=== PATIENT | female | born 1980 | race Caucasian/White ===

== ENCOUNTER 2023-09-15 15:55 | Inpatient (IN) | payer BC, OTHER ==
[~2023-09-15] VITALS: Ht 175.3 cm; Wt 78.6 kg
[2023-09-15 17:07] VITALS: PULSE 88; RESP 18; O2SAT 97
[2023-09-15 17:51] LABS: Basophils # (auto) 0 10 ^3/uL (0-0.2); Basophils % (auto) 0.2 % (0.0-2.0); Eosinophils # (auto) 0.1 10 ^3/uL (0-0.8); Eosinophils % (auto) 0.8 % (0.0-7.0); Hematocrit 37.2 % (36.0-46.0); Hemoglobin 12.7 g/dL (12.2-16.2); Lymphocytes # (auto) 1.3 10 ^3/uL (0.4-5.4); Lymphocytes % (auto) 14.2 % (10.0-50.0); Mean Corpuscular Hemoglobin 33.8 pg (28.0-32.0); Mean Corpuscular Hgb Conc. 34.2 g/dL (32.0-36.0); Mean Corpuscular Volume 98.7 fL (80.0-100.0); Monocytes # (auto) 0.5 10 ^3/uL (0-1.3); Monocytes % (auto) 5.4 % (0.0-12.0); Neutrophils # (auto) 7.3 10 ^3/uL (1.6-8.6); Neutrophils % (auto) 79.4 % (37.0-80.0); Nucleated Red Blood Cells % 0.1 %; Red Blood Cells 3.77 10^6/uL (4.0-5.20); Red Cell Distribution Width 13.4 % (11.8-14.3); White Blood Cell 9.2 10^3/uL (4.4-10.8)
[2023-09-15] MEDS: SODIUM CHLORIDE 0.9% 1,000 ML IV ONE (17:53)
[2023-09-15] MEDS: ASPirin 325 MG TAB PO ONE (17:53)
[2023-09-15] MEDS: IOHEXOL 350 MG/ML 100ML IJ ONE (17:54)
[2023-09-15 18:04] LABS: INR 1.08 (0.9-1.15); Partial Thromboplastin Time 24.8 SEC (24.5-34.5); Prothrombin Time 11.4 sec (9.3-11.8)
[2023-09-15 18:11] LABS: Alanine Aminotransferase 17 U/L (7-40); Albumin 4.1 g/dL (3.2-4.8); Alkaline Phosphatase 49 U/L (46-116); Anion Gap 12 (5-15); Aspartate Aminotransferase 14 U/L (13-40); BUN/Creatinine Ratio 11.4 (10.0-20.0); Bilirubin, Total 0.6 mg/dL (0.2-1.0); Blood Urea Nitrogen 10 mg/dL (9-23); Calcium 9.2 mg/dL (8.7-10.4); Carbon Dioxide 25 mmol/L (20-30); Chloride 104 mmol/L (98-107); Glucose 88 mg/dL (74-106); Magnesium 1.4 mg/dL (1.6-2.6); Potassium 3.3 mmol/L (3.5-5.1); Sodium 141 mmol/L (136-145)
[2023-09-15 19:03] LABS: Urine Bacteria None Seen /hpf (None Seen)
[2023-09-15 19:28] LABS: Urine Blood Negative /uL (Negative); Urine Clarity Clear (Clear); Urine Color Yellow (Yellow); Urine Mucus FEW (None Seen); Urine Protein, UAD TRACE (Negative); Urine Specific Gravity 1.034 (1.001-1.035); Urine Urobilinogen Normal (Negative); Urine WBC 5 /hpf (0 - 5); Urine pH 5.5 (5.0-9.0)
[2023-09-15] MEDS ORDERED: NITROGLYCERIN 0.4 MG SL TAB SL PRN (20:00)
[2023-09-15] MEDS ORDERED: hydrALAZINE HCL 20 MG/ML VL IV PRN (20:00)
[2023-09-15] MEDS ORDERED: HYDROcodone-ACET 5/325MG TAB PO PRN (20:00)
[2023-09-15] MEDS ORDERED: ONDANSETRON HCL 4 MG/2 ML VIAL IV PRN (20:00)
[2023-09-15] MEDS ORDERED: DOCUSATE SOD 100 MG CAP PO PRN (20:00)
[2023-09-15] MEDS ORDERED: MORPHINE SULFATE INJ 2 MG/ml SYRG IV PRN (20:00)
[2023-09-15] MEDS: SODIUM CHLOR 0.9% PF (SALINE LOCK) 10ML VIAL/SYR IV SCH (22:00)
[2023-09-15 22:08] VITALS: PULSE 95; RESP 16; O2SAT 95
[2023-09-15] MEDS: POTASSIUM CHL 20 Meq TABLET PO ONE ×2 (22:13→23:53)
[2023-09-15] MEDS: MAGNESIUM OXIDE 400 MG TAB PO ONE (22:14)
[2023-09-15] MEDS: MAGNESIUM SULFATE 1GM/100ML 100 ML IV ONE (23:52)
[2023-09-15 23:53] VITALS: RESP 18
[2023-09-16] VITALS (8 sets, daily range): BP systolic 108–136; BP diastolic 63–86; PULSE 61–82; RESP 17–22; TEMP 97.6–98.5; O2SAT 96–98
[2023-09-16] MEDS ORDERED: LORA-1105 PO (00:52)
[2023-09-16] MEDS ORDERED: NORT25CA PO (00:52)
[2023-09-16] MEDS ORDERED: BUSP15TA60 PO (00:55)
[2023-09-16] MEDS ORDERED: OME20GT GT (00:55)
[2023-09-16] MEDS ORDERED: BUPR-239 PO (00:55)
[2023-09-16] MEDS: LEVOTHYROXINE SODIUM 25 MCG TAB PO SCH (05:53)
[2023-09-16 07:02] LABS: Basophils # (auto) 0 10 ^3/uL (0-0.2); Eosinophils # (auto) 0.1 10 ^3/uL (0-0.8); Eosinophils % (auto) 1.3 % (0.0-7.0); Hematocrit 34.6 % (36.0-46.0); Hemoglobin 12.1 g/dL (12.2-16.2); Lymphocytes # (auto) 1.3 10 ^3/uL (0.4-5.4); Lymphocytes % (auto) 26.5 % (10.0-50.0); Mean Corpuscular Hemoglobin 34.5 pg (28.0-32.0); Mean Corpuscular Hgb Conc. 34.8 g/dL (32.0-36.0); Mean Corpuscular Volume 99.3 fL (80.0-100.0); Monocytes # (auto) 0.3 10 ^3/uL (0-1.3); Monocytes % (auto) 6.8 % (0.0-12.0); Neutrophils # (auto) 3.1 10 ^3/uL (1.6-8.6); Neutrophils % (auto) 64.4 % (37.0-80.0); Red Blood Cells 3.49 10^6/uL (4.0-5.20); Red Cell Distribution Width 13.5 % (11.8-14.3); White Blood Cell 4.9 10^3/uL (4.4-10.8)
[2023-09-16 07:24] LABS: Alanine Aminotransferase 13 U/L (7-40); Albumin 3.7 g/dL (3.2-4.8); Alkaline Phosphatase 46 U/L (46-116); Anion Gap 7 (5-15); Aspartate Aminotransferase 10 U/L (13-40); Blood Urea Nitrogen 6 mg/dL (9-23); Calcium 8.7 mg/dL (8.7-10.4); Carbon Dioxide 23 mmol/L (20-30); Chloride 110 mmol/L (98-107); Glucose 76 mg/dL (74-106); Sodium 140 mmol/L (136-145)
[2023-09-16 07:25] LABS: Bilirubin, Total 1.2 mg/dL (0.2-1.0); Total Protein 5.6 g/dL (5.7-8.2)
[2023-09-16 09:01] LABS: Amphetamine Screen, Urine Neg (NEGATIVE); Barbiturate Scree,Urine Neg (NEGATIVE); Benzodiazephine Screen, Urine Neg (NEGATIVE)
[2023-09-16 09:02] LABS: Cannabinoid Screen, Urine Pos (NEGATIVE); Cocaine Screen, Urine Neg (NEGATIVE); Opiate Scree,Urine Neg (NEGATIVE); Phencyclidine Screen, Urine Neg (NEGATIVE)
[2023-09-16] MEDS: ASPirin 81 mg TAB PO SCH (09:09)
[2023-09-16] MEDS: CYANOCOBALAMIN 500 MCG TAB PO ONE (12:55)
[2023-09-16] MEDS: PANTOPRAZOLE 40 MG TAB PO ONE (12:56)
[2023-09-16] MEDS: ERGOCALCIFEROL 50,000 UNIT(1.25MG) CAP PO SCH (12:56)
[2023-09-16] MEDS: ACETAMINOPHEN 325 MG TAB PO PRN (23:09)
[2023-09-17 01:00] VITALS: BP 112/69; PULSE 69; RESP 20; TEMP 98.4; O2SAT 96
[2023-09-17 05:00] VITALS: BP 108/74; PULSE 72; RESP 22; TEMP 97.8; O2SAT 98
[2023-09-17] MEDS: PANTOPRAZOLE 40 MG TAB PO SCH (05:25)
[2023-09-17 07:26] LABS: Anion Gap 8 (5-15); Carbon Dioxide 24 mmol/L (20-30); Chloride 109 mmol/L (98-107); Potassium 3.6 mmol/L (3.5-5.1); Sodium 141 mmol/L (136-145)
[2023-09-17 07:27] LABS: Calcium 9.7 mg/dL (8.7-10.4)
[2023-09-17 07:32] LABS: BUN/Creatinine Ratio 7.1 (10.0-20.0); Blood Urea Nitrogen < 5 mg/dL (9-23); Glucose 97 mg/dL (74-106)
[2023-09-17 09:00] VITALS: BP 103/63; PULSE 70; RESP 15; TEMP 98.2; O2SAT 98
[2023-09-17] MEDS: CYANOCOBALAMIN 500 MCG TAB PO SCH (09:51)
[2023-09-17] MEDS ORDERED: BUPR-60 PO (11:25)
[2023-09-17] MEDS ORDERED: BUSP30TA PO (11:25)
[2023-09-17] MEDS ORDERED: MET25T PO (11:26)
[2023-09-17] MEDS ORDERED: LEVO25TA6 PO (11:26)
[2023-09-17 13:00] VITALS: BP 115/73; PULSE 73; RESP 17; TEMP 98.3; O2SAT 98
[2023-09-17 13:28] VITALS: BP 115/73; PULSE 73; RESP 17; TEMP 98.3; O2SAT 98
[2023-09-17] MEDS ORDERED: CYAN500T3 PO (14:03)
[2023-09-17] MEDS ORDERED: ACET-1882 PO (14:03)
[2023-09-17] MEDS ORDERED: ERGO1CAP23 PO (14:03)
[2023-09-17] MEDS ORDERED: LEV25T PO (14:03)
[2023-09-17] MEDS ORDERED: ASPI-325 PO (14:03)
[2023-09-17] MEDS ORDERED: PANT40T PO (14:03)
== END 2023-09-17 15:16 | disposition home or self-care (01) | DRG 640 ==
LOC: ER 15:55 → TELE 20:14 → TELE-WESTW 22:59 → WEST WING 09-17 07:52
PROVIDERS: ADMIT Internal Medicine; ATTEND Internal Medicine
DX: E86.0 Dehydration (principal); G93.41 Metabolic encephalopathy; E03.9 Hypothyroidism, unspecified; I10 Essential (primary) hypertension; T67.5XXA Heat exhaustion, unspecified, initial encounter; F41.9 Anxiety disorder, unspecified; E87.6 Hypokalemia; E83.42 Hypomagnesemia; K21.9 Gastro-esophageal reflux disease without esophagitis; F12.10 Cannabis abuse, uncomplicated; X30.XXXA Exposure to excessive natural heat, initial encounter; Y93.89 Activity, other specified; Y92.89 Other specified places as the place of occurrence of the external cause; Y99.8 Other external cause status; Z80.42 Family history of malignant neoplasm of prostate
CPT/HCPCS: 36415; 70450; 70496; 71045; 80048; 80053; 80307; 81001; 82306; 82607; 83036; 83735; 83880; 84443; 84484; 85025; 85610; 85730; 93005; 93306; G0378